=== PATIENT | male | born 1975 | race Caucasian/White ===

== ENCOUNTER 2021-07-14 06:52 | Day surgery (SDC) | payer MEDICAID, SELFPAY ==
[~2021-07-14] VITALS: Ht 180.3 cm; Wt 113.4 kg
[2021-07-14] MEDS ORDERED: fentaNYL CITRATE/PF 100 MCG/2 ML AMP ONE (07:49)
[2021-07-14] MEDS ORDERED: SIMETHICONE 40 MG/0.6 ML ML ONE (07:49)
[2021-07-14] MEDS ORDERED: BENZOCAINE 20% 0.5mL UD SPRAY MM ONE ×2 (07:49→07:50)
[2021-07-14] MEDS ORDERED: DIPHENHYDRAMINE INJ 50 MG/ML VIAL ONE (08:12)
[2021-07-14] MEDS: MIDAZOLAM HCL 5 MG/5 ML VIAL ONE ×4 (08:17→08:24)
[2021-07-14] MEDS: MEPERIDINE 100 MG INJ. 100 MG/ML VIAL ONE ×3 (08:17→08:24)
[2021-07-14] MEDS ORDERED: MIDAZOLAM HCL 5 MG/5 ML VIAL IVP ONE (08:28)
[2021-07-14] MEDS ORDERED: MIDAZOLAM HCL 5 MG/5 ML VIAL ONE (08:35)
[2021-07-14 11:31] VITALS: BP_SYST 141
== END 2021-07-14 09:25 | disposition home or self-care (01) ==
LOC: SDS 06:52 → SMU 07:00 → SDS 09:25
PROVIDERS: ATTEND Internal Medicine
DX: K74.60 Unspecified cirrhosis of liver (principal); K29.50 Unspecified chronic gastritis without bleeding; R11.10 Vomiting, unspecified; K31.9 Disease of stomach and duodenum, unspecified; I85.10 Secondary esophageal varices without bleeding; B19.20 Unspecified viral hepatitis C without hepatic coma; E78.00 Pure hypercholesterolemia, unspecified; I10 Essential (primary) hypertension; Z87.891 Personal history of nicotine dependence; Z79.899 Other long term (current) drug therapy; Z20.822 Contact with and (suspected) exposure to COVID-19
CPT/HCPCS: 36415; 43239; 87426; 88305; 88312; 88313; 99152; G0378; J1200; J2175; J2250; J3010